=== PATIENT | male | born 1940 | race Caucasian/White ===

== ENCOUNTER 2017-06-11 20:32 | Emergency (ER) | payer OTHER ==
[~2017-06-11] VITALS: Ht 172.7 cm; Wt 72.6 kg
[2017-06-11] MEDS ORDERED: ATIVAN2 M1 (20:55)
[2017-06-11] MEDS ORDERED: SEROQUEL XR200 MG (20:55)
== END 2017-06-11 22:08 | disposition home or self-care (01) ==
LOC: ER 20:32
DX: S00.03XA Contusion of scalp, initial encounter (principal); W18.09XA Striking against other object with subsequent fall, initial encounter; Y93.89 Activity, other specified; Y92.012 Bathroom of single-family (private) house as the place of occurrence of the external cause; Y99.8 Other external cause status